=== PATIENT | male | born 1950 | race Two or more races ===

== ENCOUNTER 2021-07-29 10:47 | Emergency (ER) | payer OTHER ==
[~2021-07-29] VITALS: Ht 162.6 cm; Wt 72.6 kg
[2021-07-29] MEDS ORDERED: METOPROLOL TART50 MG PO (10:57)
[2021-07-29] MEDS ORDERED: SIMVASTATIN40 MG PO (10:57)
[2021-07-29] MEDS ORDERED: QUINAPRIL HCL40 MG PO (10:58)
== END 2021-07-29 13:32 | disposition home or self-care (01) ==
LOC: ER 10:47
DX: N20.1 Calculus of ureter (principal); R10.32 Left lower quadrant pain

== ENCOUNTER 2021-11-27 11:57 | Emergency (ER) | payer OTHER ==
[~2021-11-27] VITALS: Ht 162.6 cm; Wt 72.6 kg
[~2021-11-27 11:57] MED LIST: METOPROLOL TART50 MG PO; QUINAPRIL HCL40 MG PO; SIMVASTATIN40 MG PO
== END 2021-11-27 15:49 | disposition home or self-care (01) ==
LOC: ER 11:57
DX: N23 Unspecified renal colic (principal); I10 Essential (primary) hypertension